=== PATIENT | female | born 1970 | race Caucasian/White ===

== ENCOUNTER 2018-02-23 18:00 | Emergency (ER) | payer OTHER ==
[2018-02-23 18:24] VITALS: BP 120/71; PULSE 89; RESP 18; TEMP 98.2
--- NOTE | 2018-02-23 18:45 | ED ---
General Adult HPI - General Chief complaint: Upper Respiratory Infection Stated complaint: congestion Time Seen by Provider: 02/23/18 18:29 Source: patient Mode of arrival: ambulatory Limitations: no limitations - History of Present Illness Initial comments: This is a 47-year-old female who presents today for right lower rib pain 3 days. Patient states that a few days ago she woke up with right-sided back pain , she states that this pain in the right lower ribs is increased with deep inspiration. At first she thought she may have slept on it wrong however she began to notice it seems similar in characteristic to when she had pneumonia in the past. Pt is able to reproduce the pain with palpation. Patient has had a mild cough and congestion. She denies any fever, chills, body aches, rigor, diarrhea or nightsweats. Patient is a half-pack per day smoker, denies COPD. Patient denies any trauma to the back, chest pain, shortness of breath, dyspnea with exertion, dizziness, abdominal pain, jaw pain, epigastric pain or parathesias of the UE. Remainder of ROS (-) - Related Data Home Medications Medication Instructions Recorded Confirmed Control 1 tab PO DAILY 05/27/14 02/23/18 Hydrochlorothiazide [Hydrodiuril] 12.5 mg PO DAILY 05/27/14 02/23/18 Labetalol [Trandate] 200 mg PO DAILY 05/27/14 02/23/18 amLODIPine BESYLATE [Norvasc] 5 mg PO DAILY 05/27/14 02/23/18 Methocarbamol [Robaxin] 500 mg PO TID PRN 02/23/18 02/23/18 Previous Rx's Medication Instructions Recorded Ibuprofen [Motrin] 800 mg PO Q6HR PRN #30 tab 06/28/15 Azithromycin [Zithromax] 250 mg PO DAILY 4 Days #4 tab 02/23/18 Allergies Allergy/AdvReac Type Severity Reaction Status Date / Time venom-honey bee Allergy Unknown Verified 02/23/18 18:42 [bee venom (honey bee)] Review of Systems ROS Statement: Those systems with pertinent positive or pertinent negative responses have been documented in the HPI. ROS Other: All systems not noted in ROS Statement are negative. Constitutional: Denies: fever, chills, night sweats Eyes: Denies: vision change ENT: Denies: ear pain, throat pain Respiratory: Reports: cough. Denies: dyspnea, wheezes, hemoptysis, stridor Cardiovascular: Denies: chest pain, palpitations, dyspnea on exertion, orthopnea Gastrointestinal: Denies: abdominal pain, nausea, vomiting, diarrhea, constipation Genitourinary: Denies: urgency, dysuria, frequency, hematuria Musculoskeletal: Reports: back pain (right lower back pain near bottom ribs occurs with deep inspiration) Skin: Denies: rash, lesions Neurological: Denies: weakness, numbness, paresthesias, confusion, abnormal gait Past Medical History Past Medical History: Hypertension Additional Past Medical History / Comment(s): BRAIN ANEURSYM History of Any Multi-Drug Resistant Organisms: None Reported Past Surgical History: Back Surgery, Section Past Psychological History: No Psychological Hx Reported Smoking Status: Current every day smoker Past Alcohol Use History: Occasional Past Drug Use History: None Reported General Exam - General Exam Comments Initial Comments: General: The patient is awake and alert, in no distress, and does not appear acutely ill. Eye: Pupils are equal, extra-ocular movements are intact. No nystagmus. There is normal conjunctiva bilaterally. No signs of icterus. Ears, nose, mouth and throat: There are moist mucous membranes and no oral lesions. Neck: The neck is supple, there is no tenderness or JVD. Cardiovascular: There is a regular rate and rhythm. No murmur, rub or gallop is appreciated. Respiratory: No cynanosis. Lungs are clear to auscultation, respirations are non-labored, breath sounds are equal. Possibly increased egophony over the area where pt experiecing pain right side of thorax. No wheezes, stridor, rales, or rhonchi. Musculoskeletal: Normal ROM, no tenderness. Strength 5/5. Sensation intact. Radial pulses equal bilaterally 2+. Neurological: A&O x 3. CN II-XII intact, There are no obvious motor or sensory deficits. Coordination appears grossly intact. Speech is normal. Skin: Skin is warm and dry and no rashes or lesions are noted. Psychiatric: Cooperative, appropriate mood & affect, normal judgment. Limitations: no limitations Course Vital Signs 02/23/18 18:20 Temperature 98.2 F Pulse Rate 89 Respiratory 18 Rate Blood Pressure 120/71 O2 Sat by Pulse 96 Oximetry Medical Decision Making - Medical Decision Making Pt given toradol for paint mgmt. PE suspicious for egophony over the right lower lung base. CXR (-) infiltrate/consolidations. However given pt symptoms being similar to when she had pneumonia in the past and 1/2 PPD history I feel pt could have an early right lower lobe pneumonia. Pt given 1 dose 500mg azithromycin, with RX for 250mg azithromycin once daily x4 days for CAP. Given location of pain UA was also obtained to r/o pyelonephritis although pt denied urinary symptoms. UA WNL. Pt agreed with plan and was told to f/u with PCP if no improvement. Case discussed with Dr. Guardado in detail who agrees with impression and plan. Pt discharged in stable condition. - Lab Data Lab Results 02/23/18 Range/Units 19:37 Urine Color Yellow Urine Appearance Clear (Clear) Urine pH 6.0 (5.0-8.0) Ur Specific [place] 1.019 (1.001-1.035) Urine Protein Negative (Negative) Urine Glucose (UA) Negative (Negative) Urine Ketones Negative (Negative) Urine Blood Negative (Negative) Urine Nitrite Negative (Negative) Urine Bilirubin Negative (Negative) Urine Urobilinogen <2.0 (<2.0) mg/dL Ur Leukocyte Esterase Negative (Negative) Disposition Clinical Impression: CAP (community acquired pneumonia) Disposition: HOME SELF-CARE Condition: Good Instructions: Community Acquired Pneumonia (ED) Additional Instructions: Please use medication as discussed. Please follow-up with family doctor in the next 2 days. Please return to emergency room if the symptoms increase or worsen or for any other concerns. Prescriptions: Azithromycin [Zithromax] 250 mg PO DAILY 4 Days #4 tab Is patient prescribed a controlled substance at d/c from ED?: No Referrals: Nonstaff,Physician [Primary Care Provider] - 1-2 days Time of Disposition: 20:17
[2018-02-23] MEDS ORDERED: KETOROLAC 30 MG/ML 1 ML VIAL IM STA (19:06)
--- NOTE | 2018-02-23 19:17 | XR ---
EXAMINATION: XR chest 2V DATE AND TIME: 02/23/2018 6:47 PM CLINICAL INDICATION: Pain TECHNIQUE: PA and lateral COMPARISON: 08/18/2015 FINDINGS: The overlying soft tissues are prominent. The lungs appear to be clear. The pleural spaces are negative. The cardiac silhouette is not enlarged. The remainder of the mediastinal silhouette is unremarkable. The skeletal structures and soft tissues are negative for acute findings. IMPRESSION: NO DEFINITE ACUTE PROCESS.
[2018-02-23 19:53] LABS: Appearance,Urine Clear (Clear); Bilirubin,Urine Negative (Negative); Blood,Urine Negative (Negative); Color,Urine Yellow; Glucose,Urine (UA) Negative (Negative); Ketones,Urine Negative (Negative); Leukocyte Esterase,Urine Negative (Negative); Nitrite,Urine Negative (Negative); Protein,Urine Negative (Negative); Specific Gravity,Urine 1.019 (1.001-1.035); Urobilinogen,Urine <2.0 mg/dL (<2.0)
[2018-02-23] MEDS ORDERED: AZITHROMYCIN 500 MG TAB PO STA (20:14)
== END 2018-02-23 20:32 | disposition home or self-care (01) ==
LOC: EC 18:00
DX: J18.9 Pneumonia, unspecified organism (principal); I10 Essential (primary) hypertension; F17.210 Nicotine dependence, cigarettes, uncomplicated; Z91.030 Bee allergy status; Z79.3 Long term (current) use of hormonal contraceptives; Z79.899 Other long term (current) drug therapy
CPT/HCPCS: 81003; 71046; 99283; 96372; J1885